=== PATIENT | female | born 1960 | race Caucasian/White ===

== ENCOUNTER 2017-01-27 23:56 | Emergency (ER) | payer BC, OTHER ==
[~2017-01-27] VITALS: Ht 157.5 cm; Wt 109.0 kg
[~2017-01-27 23:56] MED LIST: AMITRIPTYLINE H50 MG PO; AMRIX30 MG PO; ATORVASTATIN CA20 MG PO; BENTYL20 MG PO; COATED ASPIRIN325 MG PO; CRESTOR5 MG PO; CYCLOBENZAPRINE10 MG PO; CYMBALTA30 MG PO; CYMBALTA60 MG PO; Cymbalta PO; DULOXETINE HCL30 MG PO; EXFORGE 10/31 TABLET PO; EXFORGE 5/321 TABLET PO; Ecotrin PO; INDERAL20 MG PO; KAPIDEX60 MG PO; LEVOXYL112 MCG PO; LEVOXYL50 MCG PO; LOVAZA1 GM PO; MAGNESIUM250 MG PO; MELOXICAM15 MG PO; MEXITIL150 MG PO; NUCYNTA100 MG PO; OMEPRAZOLE20 M3 PO; OMEPRAZOLE20 MG PO; OS-CAL 500+D T1 EAC1 PO; OXYCODONE-APAP1 EACH PO; Osteo-Biflex,Flex-A- PO; PHENADOZ25 MG RC; PREDNISONE10 MG PO; PROAIR HFA8.5 GM IH; PROMETHAZINE HC25 M1 PO; RHINOCORT AQUA8.6 G1 IH; SAVELLA50 MG PO; SEROQUEL100 MG PO; SIMVASTATIN40 M1 PO; SUMAVEL DO6 MG/0.5 M SC; TOPAMAX25 MG PO; TOVIAZ4 MG PO; TOVIAZ8 MG PO; VALIUM5 MG PO; VICODIN 5-3001 EACH PO; VITAMIN B-122500 MCG SL; VITAMIN C1000 M1 PO; VITAMIN C1000 M2 PO; [UNRECOGNIZED DRUG - OTHER] RC; [UNRECOGNIZED DRUG - REMARK]; [UNRECOGNIZED DRUG - REMARK]
[2017-01-28 01:53] LABS: HEMATOCRIT 37.9 % (36.0-46.0); MCH 25.9 PG (29.0-34.0); MCV 78.5 FL (83-99); MEAN PLAT.VOLUME 9.7 uM^3 (9.5-12.4); PLATELET COUNT 224 K/uL (156-360); RBC DIS.WIDTH-CV 14.4 % (11.8-14.6); RBC DIS.WIDTH-SD 40.7 % (39-53); RED BLOOD COUNT 4.83 M/uL (3.80-5.20); WHITE BLOOD COUNT 6.5 K/uL (4.1-10.2)
[2017-01-28 02:07] LABS: CHLORIDE 107 mEq/L (99-109); SODIUM 141 mEq/L (136-147)
[2017-01-28 02:09] LABS: GLUCOSE 93 mg/dL (70-99)
[2017-01-28 02:10] LABS: ANION GAP 8 MEQ/L (2-14)
[2017-01-28 02:11] LABS: TOTAL BILIRUBIN 0.2 mg/dL (0.0-1.0)
[2017-01-28 02:13] LABS: ALKALINE PHOSPHATASE 120 IU/L (3-129); GFR ESTIMATE (CALCULATED) > 59 mL/min/
[2017-01-28 02:14] LABS: UREA NITROGEN (BUN) 12 mg/dL (9-23)
[2017-01-28 02:15] LABS: ADD MIUA? YES; BILIRUBIN NEGATIVE; BLOOD NEGATIVE; COLOR STRAW ((YELLOW)); GLUCOSE (STRIP) NEGATIVE; KETONES NEGATIVE; LEUKOCYTES SMALL; NITRITE NEGATIVE; PROTEIN (STRIP) NEGATIVE; SPECIFIC GRAVITY 1.006 (1.000-1.030); UROBILINOGEN 0.2 MG/DL (0.2-1.0)
[2017-01-28 02:16] LABS: LIPASE 40 U/L (1.0-51.0)
[2017-01-28 02:18] LABS: BACTERIA RARE /HPF; EPITHELIAL CELLS NONE SEEN /HPF; MUCUS NONE SEEN /LPF; RED BLOOD CELLS 0-5 /HPF (0-5); UCUL ADDED? NO
[2017-01-28 02:18] LABS: TROP-I INTERPRETATION NEGATIVE; TROPONIN-I < 0.01 ng/mL (0.0-0.30)
[2017-01-28 03:25] VITALS: BP 125/78
== END 2017-01-28 03:26 | disposition home or self-care (01) ==
LOC: EME 23:56
PROVIDERS: Emergency Medicine
DX: R51 Headache (principal); R20.0 Anesthesia of skin; I10 Essential (primary) hypertension; F32.9 Major depressive disorder, single episode, unspecified; M79.7 Fibromyalgia; Z82.3 Family history of stroke; Z90.710 Acquired absence of both cervix and uterus; Z98.1 Arthrodesis status
CPT/HCPCS: 70450; 71010; 80053; 81003; 83690; 84484; 85027; 93005; 99281; 99284; J0780; J1200

== ENCOUNTER → 2018-01-09 | Outpatient (CLI) | payer OTHER, MEDICARE ==
[2018-01-09 17:03] LABS: APPEARANCE CLEAR, COLORLESS; CSF TUBE NUMBER TUBE #3; RED CELL COUNT 2 /MM^3 (0-1); WHITE CELL COUNT 2 /MM^3 (0-5)
[2018-01-09 17:04] LABS: CSF EOSINOPHILS 0 % (0-25); MONONUCLEAR WBC'S 100 % (50-90); POLYNUCLEAR WBC'S 0 % (0-3)
[2018-01-09 17:13] LABS: CSF PROTEIN 36 mg/dL (15-45); GLUCOSE, CSF 61 mg/dL (40-80)
== END | disposition home or self-care (01) ==
LOC: RAD 14:45
PROVIDERS: Psychiatry & Neurology Neurology
PROC: 009U3ZZ Drainage of Spinal Canal, Percutaneous Approach (ICD-10-PCS; principal; 2018-01-09)
DX: G37.9 Demyelinating disease of central nervous system, unspecified (principal)
CPT/HCPCS: 62270; 77003; 82040 90; 82042 90; 82784 90; 82945; 83873 90; 83916 90; 84157; 89051